=== PATIENT | female | born 1980 | race Caucasian/White ===

== ENCOUNTER 2018-09-03 14:01 | Day surgery (SDC) | payer OTHER ==
[~2018-09-03] VITALS: Ht 162.6 cm; Wt 46.8 kg
[2018-09-03] MEDS ORDERED: PREDNISONE1 MG PO (14:32)
[2018-09-03] MEDS ORDERED: FLORINEF ACETA0.1 MG PO (14:32)
[2018-09-03] MEDS ORDERED: CORTEF 10MG TAB10 MG PO (14:32)
[2018-09-03] MEDS ORDERED: DEPO-TESTOS200 MG/M1 IM (14:34)
[2018-09-03] MEDS ORDERED: PROBIOTIC FORMU1 CAP PO (14:35)
[2018-09-03] MEDS ORDERED: SOLU-CORTE100 MG/VIA IJ (14:36)
[2018-09-03 15:00] VITALS: BP 95/54; PULSE 75; TEMP 98.3
[2018-09-03 16:05] VITALS: BP 98/72; PULSE 81; TEMP 97.8
--- NOTE | 2018-09-03 16:05 | NUR ---
Pt to [facility] via cart from [place]. Pt drowsy, but awake. Denies pain or nausea. in room. Jello and juice given per pt request. Will continue to monitor. Call light within reach.
[2018-09-03 16:20] VITALS: BP 102/60; PULSE 75
--- NOTE | 2018-09-03 16:20 | NUR ---
Pt continues to rest. Pt request [facility] for ride home. Zofran 4mg IV given per PRN orders. Tolerating food and fluids without difficulties.
--- NOTE | 2018-09-03 16:30 | NUR ---
Discharge instructions reviewed. Pt and voice understanding. IV site discontinued with all parts intact. Pt up to dress. Call light within reach.
[2018-09-03 16:35] VITALS: BP 91/72; PULSE 94
--- NOTE | 2018-09-03 16:45 | NUR ---
Pt escorted to private car via wheel chair. Pt accompanied home by her .
== END 2018-09-03 16:45 | disposition home or self-care (01) ==
LOC: SDCO 14:01
DX: K92.1 Melena (principal); K21.9 Gastro-esophageal reflux disease without esophagitis; Z88.0 Allergy status to penicillin; Z88.8 Allergy status to other drugs, medicaments and biological substances; K58.0 Irritable bowel syndrome with diarrhea; Z79.51 Long term (current) use of inhaled steroids; Z90.49 Acquired absence of other specified parts of digestive tract; E27.40 Unspecified adrenocortical insufficiency; K64.8 Other hemorrhoids
CPT/HCPCS: J2250; J2405; J3010; J7030